=== PATIENT | male | born 1960 | race African-American/Black ===

== ENCOUNTER 2017-10-16 09:17 | Day surgery (SDC) | END 2017-10-16 12:05 | disposition home or self-care (01) ==

== ENCOUNTER 2017-12-02 09:51 | Emergency (ER) | END 2017-12-02 11:17 | disposition home or self-care (01) ==

== ENCOUNTER 2018-05-30 09:47 | Emergency (ER) | END 2018-05-30 14:08 | disposition home or self-care (01) ==